=== PATIENT | female | born 1950 | race Caucasian/White ===

== ENCOUNTER 2017-02-11 21:27 | Inpatient (IN) ==
--- NOTE | 2017-02-11 22:13 | Emergency Department Note ---
Noe Yang Hilary, am scribing for, and in the presence of, Yesi Godfrey DO 21: 52. IEpifanio Debra, DO, personally performed the services described in this documentation, ascribed by Elizabeth Liu in my presence, and it is both accurate and complete 213 . Arrival - Arrival Chief Complaint: Fall Stated Complaint: fall ED Nursing Triage Note: fall, pt stated tripped over fathers walker Mode of Arrival: Stretcher Limitations: No Limitations Source: Patient, RN Notes Reviewed - History of Present Illness HPI Narrative: Pt is a 66 y/o female presenting to the ED via EMS for c/o left shoulder and hip pain. Patient states that she tripped over her fathers walker while trying to dodge her dog. She confirms pain upon movement of shoulder and leg but denies dizziness or nausea after her fall. No other complaints or problems stated in ED. Onset (ago): hour(s) Consistency: constant Severity: moderate Severity scale (1-10): 4 Allergies/Adverse Reactions: Allergies Allergy/AdvReac Type Severity Reaction Status Date / Time No Known Allergies Allergy Unverified 05/09/15 14:10 Home Medications: Home Medications Medication Instructions Recorded Confirmed Type Aspirin EC Tab 325 mg PO DAILY tablet 05/10/15 Rx Pantoprazole Tab [Protonix Tab] 40 mg PO DAILY@0630 #30 tablet 05/10/15 Rx Review of System - Review of System 12 point system: reviewed and no additional remarkable complaints except as stated - Review of System Constitutional: Present: other (No dizziness ) Cardiovascular: Present: syncope Gastrointestinal: Present: nausea Medical,Surgical,& Family Hx - Medical History Reproductive: History of: Breast Cancer (right side masectomy) - Surgical History Abdominal Surgeries: Surgical HX of: Colonoscopy (4 years ago) Reproductive Surgeries: Surgical HX of;: Breast Surgery (right side masectomy), Hysterectomy (surgery was performed 1991) - Family History Family History: Reports;: Family Cancer (mother), Family Heart Disease (father) , Family Hypertension (mother), Family Stroke (mother) Denies;: Family Anesthesia Reaction, Family Diabetes, Family Hematology, Family Psychiatric Problems - Social History Smoking Status: Never smoker Exam Vital Signs: Vital Signs Temperature 98.2 F 02/11/17 22:21 Pulse Rate 78 02/11/17 22:21 Respiratory Rate 16 02/11/17 22:21 Blood Pressure 156/71 02/11/17 22:21 O2 Sat by Pulse Oximetry 98 02/11/17 21:28 - General General appearance: alert, in no apparent distress - Head Head exam: Present: atraumatic, normocephalic - Eye Eye exam: Present: normal appearance, PERRL, EOMI - ENT ENT exam: Present: normal exam, mucous membranes moist, TM's normal bilaterally. Absent: mucous membranes dry - Neck Neck exam: Present: full ROM, trachea midline. Absent: tenderness - Chest Chest inspection: Present: symmetric chest wall rise. Absent: tenderness - Respiratory Respiratory exam: Present: normal lung sounds bilaterally - Cardiovascular Cardiovascular exam: Present: regular rate, normal rhythm, normal heart sounds. Absent: murmur, rubs, gallop - Abdominal Exam Abdominal exam: Present: soft. Absent: distention, tenderness - Extremities Exam Extremities exam: Present: full ROM (Full ROM of left shoulder secondary to pain ), other (Mild shortening of left leg, Could not raise left leg up, no gross deformity of Lt leg. ) - Back Exam Back exam: Present: full ROM. Absent: tenderness - Neurological Exam Neurological exam: Present: oriented X3, CN II-XII intact. Absent: motor sensory deficit - Psychiatric Psychiatric exam: Present: normal affect, normal mood - Skin Skin exam: Present: warm, dry, intact, normal color. Absent: rash Course Course Narrative: spoke with Dr Duran who will admit the patient. Results - Labs CBC & BMP: 02/11/17 22:07 02/11/17 22:07 Lab Results: I have reviewed the patients labs Labs: Laboratory Tests 02/11/17 22:07 BUN 19 H Creatinine 1.10 H Glucose 108 H - Impressions left sub capital fracture - Diagnostic Findings Procedure: Chest x-ray: report reviewed by me (No acute cardiopulmonary disease. Chronic findings as described), X-ray: report reviewed by me, pending ( Shoulder 2V LT: No acute injury) Disposition Clinical Impression: Impacted fracture of left hip Case discussed with: patient, patient's family Disposition: Still a Patient Condition: Stable Time of Disposition: 23:32
[2017-02-11 22:23] LABS: Basophils % 0.4 % (0.0-0.8); Eosinophils # 0.1 10*3/uL (0.0-0.87); Eosinophils % 1.6 % (0.00-10.9); Hematocrit 37.4 VOL% (35.7-47.0); Hemoglobin 12.4 GM/DL (12.0-16.0); Immature Granulocytes % 0.5 %; Immature Granulocytes Absolute 0.04 #; Lymphocytes # 1.9 10*3/uL (1.4-4.0); Lymphocytes % 23.3 % (21.3-54.2); Mean Corpuscular HGB Conc 33.2 GM/DL (32-36); Mean Corpuscular Hemoglobin 30 PG (27-34); Mean Corpuscular Volume 89.5 FL (87-102); Mean Platelet Volume 11.7 FL (9.6-12.0); Monocytes # 0.5 10*3/uL (0.11-0.8); Monocytes % 6.3 % (1.7-12.7); Neutrophils # 5.6 10*3/uL (1.4-7.4); Neutrophils % 67.9 % (38.7-73.9); Platelet Count 171 T/CUMM (130-400); Red Blood Count 4.18 MC/CUMM (3.8-5.5); Red Cell Distribution Width 12.7 % (9.3-17.3); White Blood Count 8.2 T/CUMM (4-12)
[2017-02-11 22:35] LABS: PT Patient Result 10.1 SECS; Partial Thromboplastin Time 25.9 SECS (0-40)
[2017-02-11 22:47] LABS: Albumin 3.8 G/DL (3.4-5.0); Bilirubin,Total 0.4 MG/DL (0.2-1.0); Calcium 8.5 MG/DL (8.5-10.1); Osmolality,Calculated 283.3 MOS/KG (273-304); Total Protein 6.7 G/DL (6.4-8.3)
--- NOTE | 2017-02-11 23:04 | XRay Report ---
XR shoulder 2V LT Indication: Fall. Left shoulder 2 views: No acute fracture. No dislocation. Small bone island is present in the humeral head. Joint spaces are maintained. Impression: No acute injury. PROCEDURE INTERPRETED AT [facility] DEPARTMENT OF RADIOLOGY Final Report Signed by: Javier Proctor M.D.
--- NOTE | 2017-02-11 23:04 | XRay Report ---
XR chest 1V portable Indication: Fall. Chest one view: Comparison 05/10/2015. Right mastectomy, surgical clips right axilla, normal heart size and mediastinal contour and scarring at the left lung base are stable. No new infiltrates are shown. Pleural spaces are clear. No displaced or angulated fractures are identified. Impression: No acute cardiopulmonary disease. Chronic findings as described. PROCEDURE INTERPRETED AT [facility] DEPARTMENT OF RADIOLOGY Final Report Signed by: Javier Proctor M.D.
--- NOTE | 2017-02-11 23:07 | XRay Report ---
XR hip 2v w pelvis LT Indication: Fall. Left hip 2 views, pelvis one view: Subcapital left femoral neck appears shortened and there is a slight cortical irregularity along the concave medial aspect of the interface between the femoral neck and head, seen only on the frog-leg lateral view. The trabeculations through the femoral neck and head are contiguous without disruption. An impaction fracture is suspected but not definitive. No dislocation seen. Pelvic ring is intact. Joint spaces are maintained. Impression: Suspect a impaction fracture of the subcapital left femoral neck. Recommend CT for confirmation. PROCEDURE INTERPRETED AT [facility] DEPARTMENT OF RADIOLOGY Final Report Signed by: Javier Proctor M.D.
--- NOTE | 2017-02-11 23:24 | CT Report ---
CT hip LT wo con Indication: Left hip pain after fall. CT left hip without contrast Technique: Axial noncontrast CT images of the left hip were obtained. Coronal and sagittal reconstructions were evaluated. Findings: There is an extremely subtle impaction fracture of the subcapital left femoral neck. It is best seen in the coronal reconstructions where definite cortical step-off is identified as well as a very slight disruption of the trabecular features of the femoral neck. The axial images, certain cortical disruptions are identified mostly anteriorly. No dislocation. Soft tissues are intact. The visualized left hemipelvis is unremarkable as well. Impression: Very subtle impaction fracture of the subcapital left femoral neck. PROCEDURE INTERPRETED AT [facility] DEPARTMENT OF RADIOLOGY Final Report Signed by: Javier Proctor M.D.
[2017-02-11] MEDS ORDERED: ONDANSETRON 4 MG/2 ML VIAL IV PRN (23:36)
[2017-02-11] MEDS ORDERED: MAGNESIUM HYDROXIDE SUSP 30 ML UDCUP PO PRN (23:36)
[2017-02-11] MEDS ORDERED: HYDROmorphone 2 MG/1 ML VIAL IV PRN (23:36)
[2017-02-12] MEDS: SODIUM CHLORIDE 0.9% 1,000 ML IV SCH ×3 (02:27→20:21)
[2017-02-12 02:55] LABS: Apearance,Urine CLEAR (Clear); Bilirubin,Urine Negative (Negative); Blood, Urine Negative (Negative); Glucose,Urine (UA) Negative (Negative); Hyaline Casts,Urine 1 /LPF (0-3); Ketones,Urine Negative (Negative); Nitrite,Urine Negative (Negative); Protein,Urine Negative; Squamous Epithelial Cell,Urine Occasional /HPF (0-10); Urine Color Colorless (Yellow); Urine Specific Gravity 1.003 (1.001-1.035); Urine Urobilinogen < 2.0 EU/DL (0.2-1.0)
--- NOTE | 2017-02-12 08:03 | Orthopedic History & Physical ---
Assessment and Plan (1) Fractured femoral neck Status: Acute Current Visit: Yes Qualifiers: Encounter type: initial encounter Fracture type: closed Laterality: left Qualified Code(s): S72.002A - Fracture of unspecified part of neck of left femur, initial encounter for closed fracture (2) Shoulder contusion Status: Acute Current Visit: Yes Qualifiers: Encounter type: initial encounter Laterality: left Qualified Code(s): S40.012A - Contusion of left shoulder, initial encounter History of Present Illness Chief complaint: Left hip pain History of present illness: Ms. Garcia is a 66 year old female who fell last night after getting tripped up. She fell from a standing height and possibly may have gotten caught up in her father's walker. She has had some mild hip pain on and off in the past. She is an independent ambulator. She is also complaining of some pain to her left shoulder. Past medical history is significant for a distant history of breast cancer. Past surgical history: Hysterectomy and mastectomy No medicines No known drug allergies Review of systems otherwise negative Alert and oriented Lungs clear to auscultation Heart regular rate and rhythm Abdomen soft 30 minutes Left upper extremity shows some mild pain with range of motion of her shoulder. She is mildly ecchymotic about her shoulder. No deformity. Left lower extremity shows no deformity. Leg lengths approximately equal. She is irritable with logroll. Left lower extremity is neurovascularly intact. Radiographs shoulder are negative for fracture. Radiographs and CT scan hip were reviewed. They show a valgus impacted femoral neck fracture. Impression: Left valgus impacted femoral neck fracture. Left shoulder contusion Plan: I have advised left hip pinning. Risks and benefits were discussed. All questions were answered. Risks include but not limited to infection, bleeding, anesthesia, need for further operation, avascular necrosis, arthritis, nonunion , thromboembolic event, , etc. Home Medications Medication Instructions Recorded Confirmed Type No Known Home Medications [No 02/12/17 02/12/17 History Known Home Medications] Allergies Allergy/AdvReac Type Severity Reaction Status Date / Time No Known Allergies Allergy Unverified 05/09/15 14:10 Medical,Surgical,& Family Hx - Medical History HEENT: History of: Eye Problem (wears glasses) Reproductive: History of: Breast Cancer (right side masectomy) - Surgical History Abdominal Surgeries: Surgical HX of: Colonoscopy (4 years ago) Reproductive Surgeries: Surgical HX of;: Breast Surgery (right side masectomy), Hysterectomy (surgery was performed 1991) - Family History Family History: Reports;: Family Cancer (mother), Family Heart Disease (father) , Family Hypertension (mother), Family Stroke (mother) Denies;: Family Anesthesia Reaction, Family Diabetes, Family Hematology, Family Psychiatric Problems - Social History Smoking Status: Never smoker Frequency of Alcohol Use: None Exam - Constitutional Vitals: Period Temp Pulse Resp BP Sys/Marie Pulse Ox Last 24 Hr 97.6 F-98.9 F 81-88 16-18 122-124/66-69 93-95 Results - Labs CBC & BMP: 02/11/17 22:07 02/11/17 22:07
--- NOTE | 2017-02-12 08:29 | EKG Report ---
Stationary ECG Study [facility] ER Test Date: 02/11/2017 11:16:13 PM Pat Name: MARIA E DUTTON Department: Room: 317 Gender: F Engineer Steam: MENDOZA : 1950 Requested by: Yesi Godfrey Order Number: [id number] Reading MD: CHHAYA VIERA Intervals [place] Rate: 80 P: 62 CO: 153 QRS: 24 QRSD: 83 T: 48 QT: 383 QTc: 419 Interpretive Statements SINUS RHYTHM Electronically Signed On 02-12-17 18:08:24 CDT by CHHAYA VIERA [email or web address]
[2017-02-12] MEDS ORDERED: BACITRACIN OINT 0.9 GM PACK TOP ONE (09:50)
[2017-02-12] MEDS: LACTATED RINGERS 1,000 ML IV SCH ×2 (10:20→15:55)
[2017-02-12] MEDS ORDERED: diphenhydrAMINE CAP 25 MG CAPSULE PO PRN (11:25)
[2017-02-12] MEDS ORDERED: ZALEPLON 5 MG CAPSULE PO PRN (11:25)
[2017-02-12] MEDS ORDERED: oxyCODONE IR 5 MG TABLET PO PRN ×2 (11:25)
[2017-02-12] MEDS ORDERED: MORPHINE 2 MG/1 ML SYRINGE IV PRN ×2 (11:25)
--- NOTE | 2017-02-12 11:25 | Operative Note ---
Date of procedure: 02/12/17 Procedure: DIAGNOSIS: Left femoral neck fracture PROCEDURE: Left hip pinning (CPT # 13245) SURGEON: Roger ANESTHESIA: Spinal PROCEDURE and FINDINGS: After an adequate anesthesia was induced, the patient was positioned on the fracture table. The extremity was prepped and draped in usual sterile fashion. A small incision was made on the lateral aspect of the proximal femur. Subcutaneous tissue and iliotibial band were incised. Vastus lateralis was elevated off the intramuscular septum. Pins were placed and overdrilled. 2 Synthes cannulated screws were placed. Deep layers were closed with 0 Vicryl [id number] sutures. Subcutaneous tissue was approximated with 2-0 Vicryl. Skin was closed with yessica. A sterile dressing was applied. Patient was transferred to the recovery room. Image intensification was used in multiple planes throughout the procedure. EBL: Minimal Surgeon / Physician: Bird Duran Jr. Results - Labs CBC & BMP: 02/11/17 22:07 02/11/17 22:07 Discharge Plan - Discharge Medications No Action No Known Home Medications [No Known Home Medications] - Follow Up or Referral - Forms/Instructions
[2017-02-12] MEDS ORDERED: LIDOCAINE 1% 5 ML VIAL ONE (11:31)
[2017-02-12] MEDS ORDERED: PROPOFOL 200 MG/20 ML VIAL IV ONE (11:31)
[2017-02-12] MEDS ORDERED: MIDAZOLAM 2 MG/2 ML VIAL ONE (11:35)
[2017-02-12] MEDS ORDERED: KETAMINE 500 MG/10 ML VIAL ONE (11:35)
[2017-02-12] MEDS: KETOROLAC 15 MG/1 ML VIAL IV SCH ×3 (13:45→23:13)
--- NOTE | 2017-02-12 15:52 | XRay Report ---
XR hip 2V LT Indication: Left hip fracture. Left hip fluoroscopy: 2 captured fluoroscopic images. Fluoroscopy time 24 seconds. 3 percutaneous pins secure subcapital left femoral neck fracture in anatomic alignment. Impression: Anatomic alignment. PROCEDURE INTERPRETED AT [facility] DEPARTMENT OF RADIOLOGY Final Report Signed by: Javier Proctor M.D.
[2017-02-12] MEDS: ACETAMINOPHEN 500 MG TABLET PO SCH ×2 (16:00→21:09)
[2017-02-12] MEDS: DOCUSATE SODIUM 100 MG CAPSULE PO SCH (21:08)
[2017-02-13] MEDS: ACETAMINOPHEN 500 MG TABLET PO SCH ×2 (03:15→10:10)
[2017-02-13] MEDS: SODIUM CHLORIDE 0.9% 1,000 ML IV SCH ×2 (03:17→06:42)
[2017-02-13 04:25] LABS: Basophils % 0.4 % (0.0-0.8); Eosinophils # 0.3 10*3/uL (0.0-0.87); Hematocrit 33.2 VOL% (35.7-47.0); Hemoglobin 10.7 GM/DL (12.0-16.0); Immature Granulocytes % 0.4 %; Immature Granulocytes Absolute 0.03 #; Lymphocytes # 1.9 10*3/uL (1.4-4.0); Lymphocytes % 24.9 % (21.3-54.2); Mean Corpuscular HGB Conc 32.2 GM/DL (32-36); Mean Corpuscular Hemoglobin 30 PG (27-34); Mean Corpuscular Volume 91.7 FL (87-102); Mean Platelet Volume 12.1 FL (9.6-12.0); Monocytes # 0.5 10*3/uL (0.11-0.8); Monocytes % 6.1 % (1.7-12.7); Neutrophils % 64.2 % (38.7-73.9); Platelet Count 130 T/CUMM (130-400); Red Blood Count 3.62 MC/CUMM (3.8-5.5); Red Cell Distribution Width 12.8 % (9.3-17.3); White Blood Count 7.7 T/CUMM (4-12)
[2017-02-13 04:49] LABS: Calcium 7.6 MG/DL (8.5-10.1); Osmolality,Calculated 286.6 MOS/KG (273-304)
[2017-02-13] MEDS: KETOROLAC 15 MG/1 ML VIAL IV SCH (05:13)
--- NOTE | 2017-02-13 07:16 | Orthopedic Progress Note ---
Assessment and Plan (1) Fractured femoral neck Status: Acute Current Visit: Yes Qualifiers: Encounter type: initial encounter Fracture type: closed Laterality: left Qualified Code(s): S72.002A - Fracture of unspecified part of neck of left femur, initial encounter for closed fracture (2) Shoulder contusion Status: Acute Current Visit: Yes Qualifiers: Encounter type: initial encounter Laterality: left Qualified Code(s): S40.012A - Contusion of left shoulder, initial encounter Orthopedics - Subjective Interval history: Ms. Garcia feels better after surgery. She was able to sit up in the chair for about an hour yesterday afternoon. Dressing is clean, dry and intact. Left lower extremity is neurovascularly unchanged. Plan: Mobilize with physical therapy. I anticipate discharge home this weekend with home health therapy. Exam - Constitutional Vitals: Period Temp Pulse Resp BP Sys/Marie Pulse Ox Last 24 Hr 96.9 F-98.9 F 68-96 16-20 88-139/46-74 93-100 Results - Labs CBC & BMP: 02/13/17 03:30 02/13/17 03:30
--- NOTE | 2017-02-13 08:58 | Anesthesia ---
Anesthesia Post OP - Post Ansesthetic Evaluation Patient seen in post op: Yes Resp: within normal limits CV: within normal limits Mental: within normal limits Temp: within normal limits [id number]-Ve-Cfidroxjy: within normal limits Nausea and Vomiting: within normal limits Pain: within normal limits
[2017-02-13] MEDS: DOCUSATE SODIUM 100 MG CAPSULE PO SCH ×2 (10:10→21:32)
[2017-02-13] MEDS: FONDAPARINUX 2.5 MG/0.5 ML SYRINGE SUBCUT SCH (10:10)
[2017-02-14 02:15] LABS: Basophils % 0.3 % (0.0-0.8); Eosinophils # 0.3 10*3/uL (0.0-0.87); Eosinophils % 3.3 % (0.00-10.9); Hematocrit 32.9 VOL% (35.7-47.0); Hemoglobin 10.9 GM/DL (12.0-16.0); Immature Granulocytes % 0.4 %; Immature Granulocytes Absolute 0.04 #; Lymphocytes # 2.1 10*3/uL (1.4-4.0); Lymphocytes % 21.2 % (21.3-54.2); Mean Corpuscular HGB Conc 33.1 GM/DL (32-36); Mean Corpuscular Hemoglobin 29 PG (27-34); Mean Corpuscular Volume 87.5 FL (87-102); Mean Platelet Volume 12.3 FL (9.6-12.0); Monocytes # 0.6 10*3/uL (0.11-0.8); Monocytes % 5.7 % (1.7-12.7); Neutrophils # 6.8 10*3/uL (1.4-7.4); Neutrophils % 69.1 % (38.7-73.9); Platelet Count 149 T/CUMM (130-400); Red Blood Count 3.76 MC/CUMM (3.8-5.5); Red Cell Distribution Width 12.8 % (9.3-17.3); White Blood Count 9.8 T/CUMM (4-12)
--- NOTE | 2017-02-14 06:52 | Discharge Summary ---
Hospital Course - Hospital Course Hospital Course: Mrs. Garcia was admitted after sustaining a left valgus impacted femoral neck fracture. She underwent pinning of her left hip. She received perioperative DVT and antimicrobial prophylaxis. She received physical therapy. She was discharged home in stable condition postoperative day #2 after passing physical therapy. Dressing is clean, dry and intact. Right lower extremity is neurovascularly unchanged. Diagnosis - Discharge Diagnosis (1) Fractured femoral neck Status: Acute (2) Shoulder contusion Status: Acute Discharge Plan - Discharge Data Disposition: Home Health Service Condition at Discharge: Stable Discharge Diet: advance to your usual diet Activity: ambulate only with your walker Hygiene: may shower Weight Bearing at Discharge: weight bear as tolerated Driving: not until seen by doctor - Discharge Medications No Action No Known Home Medications [No Known Home Medications] - Follow Up or Referral - Forms/Instructions Additional Discharge Instructions: Daily dry dressing changes. Arrange for walker and bedside commode for home use. Wear BRYAN hose for 1 month. Follow-up appointment in 4 weeks. Discontinue yessica and Steri-Strip wound on February 22, 2017. Take aspirin 325 mg by mouth daily for 21 days. Prescription for [place] 5 with 30 tablets was written. Prescription for []. Exam - Constitutional Vitals: Period Temp Pulse Resp BP Sys/Marie Pulse Ox Last 24 Hr 97.4 F-100.1 F 76-92 16-18 99-156/51-79 93-95 Discharge Results Procedures and tests throughout hospitalization: Pending Orders 02/15/17 04:00 Comp Blood Count Auto Diff IN AM Labs on day of discharge: Labs from last 24 hours 02/14/17 01:35 WBC 9.8 RBC 3.76 L Hgb 10.9 L Hct 32.9 L MCV 87.5 MCH 29 MCHC 33.1 RDW 12.8 Plt Count 149 MPV 12.3 H Neut % (Auto) 69.1 Lymph % (Auto) 21.2 L Sully % (Auto) 5.7 Eos % (Auto) 3.3 Baso % (Auto) 0.3 Neut # (Auto) 6.8 Lymph # (Auto) 2.1 Sully # (Auto) 0.6 Eos # (Auto) 0.3 Baso # (Auto) 0.0 Immature Gran % 0.4 Nucleated RBC % 0.0 Immature Gran # 0.04 Nucleated RBCs # 0.00 DS: Provider Date of admission: 02/11/17 23:36 Primary care physician: . No PCP Attending physician on admission: Bird Duran Jr., Consults: 02/12/17 02:33 Consult to Pharmacy [CONS] Routine Reason for Pharmacy Consult: Adjust Meds Renal Funct 02/12/17 11:25 Consult to Case Mgmt/Social Srvs [CONS] Routine Reason for Case Mgmt/Social Srvs: Rehab Home Health Equipment Consult Comment: Bedside Commode, Del to Room 317 before D/C, Pt 5ft 4in, 136lbs Consult to Occupational Therapy [CONS] Routine Reason for Occupational Therapy: Evaluate and Treat Consult Comment: ADL's Consult to Physical Therapy [CONS] Routine Reason for Physical Therapy: Evaluate and Treat Gait Training Start Therapy: Today Consult Comment: wbat with walker 02/12/17 15:21 Consult to Physical Therapy [CONS] Routine Reason for Physical Therapy: Other Consult Comment: Deliver Standard Walker to the patient before D/C'd home. Discharging clinician: Bird Duran Jr., Expected date of discharge: 02/14/17
[2017-02-14 08:04] VITALS: BP 128/76
[2017-02-14] MEDS: FONDAPARINUX 2.5 MG/0.5 ML SYRINGE SUBCUT SCH (10:14)
[2017-02-14] MEDS: DOCUSATE SODIUM 100 MG CAPSULE PO SCH (10:14)
== END 2017-02-14 11:02 | disposition home health service (06) | DRG 482 ==
LOC: EDBD → EDUNIT# → N.ED 21:27 → N.EDINP 23:36 → N.3E 02-12 01:07 → N.EDINP 02-12 01:07 → N.3E 02-12 01:50
PROVIDERS: ADMIT Orthopaedic Surgery; ATTEND Orthopaedic Surgery